=== PATIENT | male | born 1995 | race Caucasian/White ===

== ENCOUNTER 2021-03-29 23:32 | Emergency (ER) | payer OTHER ==
[~2021-03-29] VITALS: Ht 167.6 cm; Wt 64.0 kg
[2021-03-29 23:34] VITALS: BP 117/81
[2021-03-30] MEDS ORDERED: ACETAMINOPHEN 500 MG TAB PO ONE (02:15)
== END 2021-03-30 04:53 | disposition left against medical advice (07) ==
LOC: ER 23:32
DX: S09.8XXA Other specified injuries of head, initial encounter (principal); Z53.21 Procedure and treatment not carried out due to patient leaving prior to being seen by health care provider
CPT/HCPCS: 70450; 73130